=== PATIENT | female | born 1990 | race Caucasian/White ===

== ENCOUNTER 2018-11-21 15:57 | Inpatient (IN) | payer OTHER, SELFPAY ==
[2018-11-21 16:30] VITALS: BMI 25.3
[2018-11-21] MEDS ORDERED: Acetaminophen 500 MG TAB PO PRN (17:51)
[2018-11-21] MEDS ORDERED: Promethazine HCl 25 MG/ML VIAL IM PRN (17:51)
[2018-11-21] MEDS ORDERED: Calcium Gluc 4.6 MEQ/10 ML (100 MG/ML) SLOW IVP PRN (17:51)
--- NOTE | 2018-11-21 17:59 | PDOC.LDHP ---
Labor and Delivery H&P HPI: 27 yo @ 29w3 sent from clinic for evaluation due to PLT sx and CL 1.48 cm on TVUS with funneling. Pt has been having ctx the past 2 days intermittently. Unable to perform FFN due to intercourse yesterday. Denies LOF/VB. Pt very anxious about circumstance. Current gestational age (weeks): 29 Due date: 02/03/19 Dating criteria: first trimester ultrasound Grav: 2 Para: 0 Current complications: none Abnormal US findings: No Current medications: pre-katarzyna vitamins Previous surgical history: dilation and curettage, other (ovarian cystectomy) Allergies/Adverse Reactions: Allergies Allergy/AdvReac Type Severity Reaction Status Date / Time Cephalosporins Allergy Mild Rash Verified 11/21/18 16:31 - Physical Exam Vital signs reviewed and normal: yes General: NAD Heart: RRR Lungs: nonlabored breathing Abdomen: gravid Extremeties: no edema FHT: category 1 (120s, mod ernesto, +accels, no decels) [place] contractions every: rare ctx, not consistent - Vaginal Exam cm dilated: 0 (per TVUS) - OB Labs Blood type: A RH: positive Antibody Screen: negative HIV: negative RPR: negative HEPSAg: negative 1 hour GCT: negative GBS: unknown Urine drug screen: positive (+ THC) Rubella: immune - Assessment 29 weeks IUP Shortened CL with funneling, previous ctx. \ H/O THC use - Plan Plan: observation in L&D, informed consent obtained, anesthesia consult for pain management -: UDS and UA ordered. s/p BMTZ in clinic, will complete her course . mag for neuroprotection for possible risk for labor within the week.
[2018-11-21] MEDS ORDERED: Magnesium Sulfate 20 GM/WATER 500 ML BAG IVPB SCH (18:00)
[2018-11-21] MEDS ORDERED: hydrOXYzine 25 MG TAB PO PRN (18:04)
[2018-11-21] MEDS: Magnesium Sulfate 20 gm/500 ml 20 GM/500 ML BAG IVPB SCH (18:29)
[2018-11-21] MEDS: Lactated Ringer's 1,000 ML IV SCH (18:29)
[2018-11-21 19:06] LABS: Bilirubin Negative (Negative); Blood, Urine Negative (Negative); Clarity CLEAR (Clear); Glucose, Urine (Dipstick) Negative (Negative); Leukocyte Negative (Negative); Nitrite Negative (Negative); Protein, Urine (Dipstick) Negative (Neg-Trace); Urobilinogen 0.2 mg/dL (0.2-1.0); pH, Urine 7.5 (5.0-9.0)
[2018-11-21 19:10] LABS: Specific Gravity, Urine 1.002 (1.002-1.036)
[2018-11-21 19:17] VITALS: BP 127/72
[2018-11-21 19:18] LABS: Amphetamine Not Detected (NotDetected); Barbiturates Screen Not Detected (NotDetected); Benzodiazepine Screen Not Detected (NotDetected); Cocaine Metabolite Screen Not Detected (NotDetected); Medtox Control Line Valid? VALID (VALID); Medtox Reader # READER 1; Methadone Not Detected (NotDetected); Methamphetamine Not Detected (NotDetected); Opiate Screen Not Detected (NotDetected); Oxycodone Screen Not Detected (NotDetected); Phencyclidine (PCP) Not Detected (NotDetected); THC/Cannabinoid Screen Not Detected (NotDetected); Tricyclic Screen Not Detected (NotDetected)
[2018-11-21 19:24] LABS: Bacteria/HPF None Seen HPF (None Seen); Hyaline Casts/LPF NONE SEEN LPF (0-3 Hyaline); RBC/HPF None Seen HPF (0-3); Squamous Epithelial 0-3 HPF (0-3); WBC/HPF None Seen HPF (0-3)
[2018-11-21 19:27] LABS: Hemoglobin 12.5 g/dL (12.0-16.0); Mean Corpuscular HGB CONC 34.7 g/dL (32.0-36.0); Mean Corpuscular Hemoglobin 32.4 pg (27.0-31.0); Mean Corpuscular Volume 93.4 fL (78.0-98.0); Mean Platelet Volume 7.9 fL (7.4-10.4); Platelet Count 179 thou/uL (130-400); RBC Distribution Width 11.6 % (11.5-14.5); Red Blood Cell (RBC) Count 3.87 mill/uL (4.20-5.40); White Blood Cell (WBC) Count 15.5 thou/uL (4.8-10.8)
[2018-11-21 21:10] VITALS: TEMP 98.5
[2018-11-22] MEDS: Magnesium Sulfate 20 gm/500 ml 20 GM/500 ML BAG IVPB SCH (02:46)
[2018-11-22] MEDS: Ondansetron PF 4 MG/2 ML Vial IVP PRN ×2 (02:47→14:19)
[2018-11-22] MEDS: Lactated Ringer's 1,000 ML IV SCH ×2 (07:00→08:06)
--- NOTE | 2018-11-22 08:34 | PDOC.LDPN ---
Labor & Delivery Progress Note - Subjective Subjective: comfortable (Pt reports rested well. No ctx, pressure or back pain. Good FM. ) - Objective Vital signs reviewed and normal: yes General: NAD Uterine fundus: non tender FHT: category 1 (120s, mod ernesto, +accels, no decels ) [place] contractions every: no ctx - Assessment (1) contractions Code(s): O47.9 - FALSE LABOR, UNSPECIFIED Current Visit: Yes Status: Acute (2) Antepartum cervical shortening Code(s): O26.879 - CERVICAL SHORTENING, UNSPECIFIED TRIMESTER Current Visit: Yes Status: Acute -: D/C mag this morning, now > 12 hr for neuroprotection and pt has not had ctx since admission. Plan to complete BMTZ course this PM and plan for d/c home. PTL precautions reviewed with pt.
[2018-11-22] MEDS ORDERED: metroNIDAZOLE 500 MG TAB PO SCH ×3 (12:30→21:00)
[2018-11-22] MEDS ORDERED: Ondansetron ODT 8 MG TAB SL PRN (13:18)
[2018-11-22] MEDS ORDERED: Fluconazole 100 MG TAB PO SCH (13:30)
[2018-11-22] MEDS ORDERED: Betamet Acet/Betamet Na Ph 30 MG/5 ML VIAL IM SCH (15:00)
--- NOTE | 2018-11-24 04:35 | DIS ---
DATE OF ADMISSION: 11/21/2018 DATE OF DISCHARGE: 11/22/2018 ADMISSION DIAGNOSES: 1. A 29-week 3-day intrauterine . 2. Shortened cervical length noted antepartum. 3. contractions. DISCHARGE DIAGNOSES: 1. A 29-week 3-day intrauterine . 2. Shortened cervical length noted antepartum. 3. contractions. DISCHARGE PHYSICIAN: Shandra Montaño DO BRIEF HOSPITAL COURSE: Ms. Crump is a 27-year-old, G2, P0, at 29 weeks and 3 days who presented to clinic with complaints of contractions. She had undergone a transvaginal ultrasound noting cervical funneling with 1.4 cm of intact cervix and fFN was unable to be obtained due to recent intercourse. The patient was then recommended to be admitted for observation for a betamethasone steroid course for lung maturity and magnesium for neuroprotection. She was found to not be actively livia during her admission, however, was thought that observation was necessary for these interventions as listed above due to possible increased risk for labor and delivery within the next week of her . The patient did undergo the betamethasone course and magnesium for neuroprotection. The fetus remained reactive throughout her stay and she did not have any additional contractions. The patient was then discharged home with labor precautions and followup appointment scheduled. ACTIVITY RESTRICTIONS: Recommended pelvic rest and decreased physical activity and increased hydration. FOLLOWUP: Follow up in 1-2 weeks in clinic. Job ID: [id number]
== END 2018-11-22 15:30 | disposition home health service (06) | DRG 832 ==
LOC: L&D 15:57
PROVIDERS: ADMIT Obstetrics & Gynecology; ATTEND Obstetrics & Gynecology
DX: O47.03 False labor before 37 completed weeks of gestation, third trimester (principal); O26.873 Cervical shortening, third trimester; Z3A.29 29 weeks gestation of pregnancy; Z88.1 Allergy status to other antibiotic agents
CPT/HCPCS: 36415; 80306; 81001; 83735; 85027; 86850; 86900; 86901; 87077; 87081; 99285; J0702; J2405; J2550; J3475

== ENCOUNTER 2019-02-01 06:00 | Inpatient (IN) | payer OTHER, SELFPAY ==
[2019-02-01] MEDS ORDERED: Misoprostol 200 MCG TAB PR PRN (08:57)
[2019-02-01] MEDS ORDERED: Promethazine HCl 25 MG/ML VIAL IM PRN (08:57)
[2019-02-01] MEDS ORDERED: Lidocaine 1% (PF) 30 ML VIAL SC PRN (08:57)
[2019-02-01] MEDS ORDERED: Carboprost 250 MCG/ML AMP IM PRN (08:57)
[2019-02-01] MEDS ORDERED: NS / Oxytocin 40 units/1000ml 1,000 ML IV PRN (08:57)
[2019-02-01] MEDS ORDERED: hydrALAZINE 20 MG/ML VIAL SLOW IVP PRN ×2 (08:57→20:32)
[2019-02-01] MEDS ORDERED: Methylergonovine 0.2 MG/ML VIAL IM PRN ×2 (08:57→20:32)
[2019-02-01] MEDS ORDERED: Butorphanol Tartrate 1 MG/ML VIAL SLOW IVP PRN (08:57)
[2019-02-01] MEDS ORDERED: Acetaminophen 500 MG TAB PO PRN (08:57)
[2019-02-01] MEDS ORDERED: Diphenoxylate HCl/Atropine Tablet PO PRN (08:57)
[2019-02-01] MEDS ORDERED: HYDROcodone/Acetaminophen 5/325 mg Tablet PO PRN (08:57)
[2019-02-01] MEDS ORDERED: Ondansetron PF 4 MG/2 ML Vial IVP PRN (08:57)
[2019-02-01] MEDS ORDERED: Penicillin G Potassium 5 MILL.UNITS in Sodium Chloride 0.9% 100 ML IVPB SCH (09:00)
--- NOTE | 2019-02-01 09:08 | PDOC.LDHP ---
Labor and Delivery H&P Chief complaint: scheduled induction HPI: 28 yo @ 39w5d by LMP c/w 9 week CRL who presents for EIOL. Antepartum course complicated by prior THC use, UDS has been negative; anxiety and GBS carrier. She was admitted at 29 weeks for shortened CL and given BMTZ and mag. Otherwise, benign antepartum course. Current gestational age (weeks): 39 Due date: 02/03/19 Dating criteria: last menstrual period Grav: 2 Para: 0 OB History Details: 1 SAB Current complications: none Abnormal US findings: No Past Medical History: Anxiety Current medications: pre- vitamins Previous surgical history: other (Left tib/fib; D&C, ovarian cystectomy) Allergies/Adverse Reactions: Allergies Allergy/AdvReac Type Severity Reaction Status Date / Time cephalothin Allergy Verified 02/01/19 10:07 Social history: drug use (prior THC, remainder of UDS negative) - Physical Exam Vital signs reviewed and normal: yes General: NAD Heart: RRR Lungs: nonlabored breathing Abdomen: gravid Extremeties: no edema (120s, mod ernesto, +accels, no decels) FHT: category 1 [place] contractions every: irregualr - Vaginal Exam cm dilated: 3 (per RN ) Effacement: 75% Station: -1 - OB Labs Blood type: A RH: positive Antibody Screen: negative HIV: negative RPR: negative HEPSAg: negative 1 hour GCT: negative GBS: positive Urine drug screen: positive (repeat negative) Rubella: immune Additional Labs: NIPT, msAFP and carrier screening negative - Assessment 39w5d IUP EIOL GBS+ - Plan Plan: admit to L&D, GBS antibiotic prophylaxis, informed consent obtained, anesthesia consult for pain management -: pitocin for IOL
[2019-02-01] MEDS ORDERED: Penicillin G Potassium 5 MILL.UNITS VIAL ONE (09:28)
[2019-02-01] MEDS ORDERED: NS w/ Oxytocin 10 units 500 ML ONE (09:28)
[2019-02-01] MEDS: Lactated Ringer's 1,000 ML IV SCH ×2 (09:30→22:14)
[2019-02-01] MEDS ORDERED: Ondansetron PF 4 MG/2 ML Vial ONE (09:39)
[2019-02-01] MEDS ORDERED: diphenhydrAMINE 50 MG/ML VIAL ONE (09:40)
[2019-02-01 10:12] LABS: Hemoglobin 12.4 g/dL (12.0-16.0); Mean Corpuscular HGB CONC 35.5 g/dL (32.0-36.0); Mean Corpuscular Volume 90.1 fL (78.0-98.0); Mean Platelet Volume 8.6 fL (7.4-10.4); Platelet Count 169 thou/uL (130-400); RBC Distribution Width 12.1 % (11.5-14.5); Red Blood Cell (RBC) Count 3.89 mill/uL (4.20-5.40); White Blood Cell (WBC) Count 9.4 thou/uL (4.8-10.8)
[2019-02-01 10:21] VITALS: BMI 26.9
[2019-02-01 10:56] LABS: HBSAg Index 0.35 S/CO (0-0.99); HIV (1/2) Antibody/Antigen Non-Reactive (NonReactive); HIV 1/2 INDEX 0.12 S/CO (<1.00); Hep B Surf Ag Non-Reactive S/CO (NonReactive)
[2019-02-01 10:57] LABS: Syphilis Antibody Nonreactive (Nonreactive); Syphilis Antibody Index 0.07 S/CO (<1.00 Non-Reactive)
[2019-02-01] MEDS ORDERED: Lidocaine 2% MPF 10 ML AMP (For Epidural Use) ONE (11:11)
[2019-02-01] MEDS: NS w/ Oxytocin 10 units 500 ML IV SCH (11:29)
[2019-02-01] MEDS ORDERED: diphenhydrAMINE 50 MG/ML VIAL IVP SCH (11:30)
[2019-02-01] MEDS ORDERED: Fentanyl 4 mcg/Bup 0.1% Cadd 100 ML ONE (12:29)
[2019-02-01] MEDS ORDERED: hydrOXYzine 25 MG TAB PO PRN (12:29)
--- NOTE | 2019-02-01 12:31 | PDOC.LDPN ---
Labor & Delivery Progress Note - Subjective Subjective: painful contractions - Objective Vital signs reviewed and normal: yes General: NAD Uterine fundus: non tender Dilation: 4 Effacement: 90% Station: 0 FHT: category 1 (120s, mod ernesto, +accels, no decels ) [place] contractions every: q4-5 min AROM: clear fluid - Assessment (1) 39 weeks gestation of Code(s): Z3A.39 - 39 WEEKS GESTATION OF Current Visit: Yes Status : Acute (2) Group B streptococcal carriage complicating Code(s): O99.820 - STREPTOCOCCUS B CARRIER STATE COMPLICATING Current Visit: Yes Status: Acute Plan: continue plan of care, pitocin for augmentation
[2019-02-01] MEDS ORDERED: Lidocaine 1.5%/Epinephrine 1:200,000 5 ML AMPUL IJ ONE (12:45)
[2019-02-01] MEDS: Penicillin G 2.5 MILL.units 2.5 MILL.UNITS in Premix Bag 1 BAG IVPB SCH ×3 (13:30→22:14)
[2019-02-01 14:25] LABS: Amphetamine Not Detected (NotDetected); Cocaine Metabolite Screen Not Detected (NotDetected); Medtox Reader # READER 4; Methamphetamine Not Detected (NotDetected); Opiate Screen Not Detected (NotDetected); Phencyclidine (PCP) Not Detected (NotDetected); THC/Cannabinoid Screen Not Detected (NotDetected)
[2019-02-01 14:26] LABS: Barbiturates Screen Not Detected (NotDetected); Benzodiazepine Screen Not Detected (NotDetected); Medtox Control Line Valid? VALID (VALID); Methadone Not Detected (NotDetected); Oxycodone Screen Not Detected (NotDetected); Tricyclic Screen Not Detected (NotDetected)
[2019-02-01 20:11] LABS: pH (Cord, venous) 7.3 (7.32-7.43)
--- NOTE | 2019-02-01 20:12 | PDOC.OPDEL ---
OB Operative/Delivery Note Delivery Dr/Surgeon: Shandra Montaño DO Pre-Delivery Diagnosis: elective induction Procedure/Post Delivery Dx: spontaneous vaginal delivery Weeks gestation: 39 Anesthesia: epidural - Findings A Sex: male - 1 min: 6 - 5 min: 8 - Additional Findings/Plan Placenta delivered: spontaneous Repaired Obstetrical Laceration: other (small bilateral labial lacerations) Estimated blood loss: EBL 400 cc Compilations/Other Findings: Cepahlic presentation, HEIKE position NICU called to room Cord gases done Cytotec 800 mcg HI placed due to atony which resolved. Post delivery plan: routine recovery
[2019-02-01] MEDS ORDERED: Preparation H Ointment 28 GM TUBE PR PRN (20:32)
[2019-02-01] MEDS ORDERED: Bisacodyl 10 MG SUPP PR PRN (20:32)
[2019-02-01] MEDS ORDERED: Zolpidem Tartrate 5 MG TAB PO PRN (20:32)
[2019-02-01] MEDS ORDERED: Milk Of Magnesia 30 ML UDCUP PO PRN (20:32)
[2019-02-01] MEDS ORDERED: Benzocaine-Menthol 82.5 ML CAN TOP PRN (20:32)
[2019-02-01] MEDS: Ibuprofen 800 MG TAB PO SCH (20:41)
[2019-02-01] MEDS: NS / Oxytocin 40 units/1000ml 1,000 ML IV SCH ×2 (20:42→20:43)
[2019-02-01] MEDS: Docusate Calcium (SURFAK) 240 MG CAP PO SCH (22:14)
[2019-02-02] MEDS: HYDROcodone/Acetaminophen 5/325 mg Tablet PO PRN ×4 (00:34→22:41)
[2019-02-02] MEDS: Lactated Ringer's 1,000 ML IV SCH ×3 (02:41→14:54)
[2019-02-02] MEDS: Ibuprofen 800 MG TAB PO SCH ×3 (04:52→21:30)
[2019-02-02 06:49] LABS: #Eosinphils 0.1 thou/uL (0.0-0.7); #Lymphocytes 1.7 thou/uL (1.20-3.40); #Monocytes 0.9 thou/uL (0.11-0.59); #Neutrophils 10.1 thou/uL (1.40-6.50); %Basophils 0.4 % (0.0-1.0); %Eosinophils 0.8 % (0.0-10.0); %Lymphocytes 13.1 % (21.0-51.0); %Monocytes 6.6 % (0.0-10.0); %Neutrophils 79.1 % (42.0-75.0); Hemoglobin 10.8 g/dL (12.0-16.0); Mean Corpuscular HGB CONC 34.5 g/dL (32.0-36.0); Mean Corpuscular Hemoglobin 31.8 pg (27.0-31.0); Mean Corpuscular Volume 92.1 fL (78.0-98.0); Mean Platelet Volume 8.3 fL (7.4-10.4); Platelet Count 128 thou/uL (130-400); Red Blood Cell (RBC) Count 3.39 mill/uL (4.20-5.40); White Blood Cell (WBC) Count 12.8 thou/uL (4.8-10.8)
[2019-02-02] MEDS: NS w/ Oxytocin 10 units 500 ML IV SCH (07:34)
[2019-02-02] MEDS: Ferrous Sulfate 325 MG TAB PO SCH ×2 (07:34→14:54)
--- NOTE | 2019-02-02 08:12 | PRG ---
DATE OF SERVICE: 02/02/2019 SUBJECTIVE: The patient is day 1, status post a term spontaneous vaginal delivery. She is reporting this morning that she is tolerating p.o., voiding on her own, having decreased lochia and good pain control. OBJECTIVE: VITAL SIGNS: Blood pressure is 112/59, temperature 98.5, pulse of 99, and respiratory rate of 18. GENERAL: She appears to be in no acute distress. She is alert and oriented, cooperative and pleasant to interact with. HEENT: Head is normocephalic, atraumatic. ABDOMEN: Fundus is firm. EXTREMITIES: Nontender. Nonedematous. ASSESSMENT AND PLAN: The patient is a G1, now P1 female, day 1, status post a term spontaneous vaginal delivery. We will continue in-house care. Anticipate discharge tomorrow. Job ID: [id number]
[2019-02-02] MEDS: Ondansetron ODT 4 MG TAB PO PRN ×2 (09:19→22:44)
[2019-02-02] MEDS: Docusate Calcium (SURFAK) 240 MG CAP PO SCH ×2 (09:19→21:30)
[2019-02-02] MEDS: Prenatal Vitamin 1 TAB PO SCH (09:19)
[2019-02-03] MEDS: Lactated Ringer's 1,000 ML IV SCH ×3 (01:21→17:34)
[2019-02-03] MEDS: Ibuprofen 800 MG TAB PO SCH ×2 (05:33→13:57)
--- NOTE | 2019-02-03 07:20 | PDOC.PP ---
Post Progress Note Post Day #: 2 PO intake tolerated: yes Flatus: yes Ambulation: yes Vital Signs (12 hours) Temp Pulse Resp BP Pulse Ox 02/02/19 21:15 97.7 F 78 18 111/55 L 98 Weight Weight 167 lb - Physical Examination General: NAD Respiratory: clear to auscultation bilaterally Abdominal: + bowel sounds, lochia Extremities: negative homans (B) Neurological: no gross focal deficits Psychiatric: A&Ox3, normal affect Result Diagrams: 02/02/19 06:23 Additional Labs: Post Labs Blood Type A POSITIVE 02/01/19 10:35 Hep Bs Antigen Non-Reactive S/CO (NonReactive) 02/01/19 10:04 - Assessment/Plan doing well desires dc home.
[2019-02-03] MEDS: Ferrous Sulfate 325 MG TAB PO SCH ×2 (07:37→17:34)
[2019-02-03] MEDS: NS w/ Oxytocin 10 units 500 ML IV SCH (07:37)
[2019-02-03 08:56] VITALS: BP 107/64; TEMP 98.7
[2019-02-03] MEDS: Docusate Calcium (SURFAK) 240 MG CAP PO SCH (09:29)
[2019-02-03] MEDS: Prenatal Vitamin 1 TAB PO SCH (09:29)
[2019-02-03] MEDS: HYDROcodone/Acetaminophen 5/325 mg Tablet PO PRN (10:39)
== END 2019-02-03 18:30 | disposition home or self-care (01) | DRG 807 ==
LOC: L&D 08:49 → MERGE 08:49 → 3SW 23:26
PROVIDERS: ADMIT Obstetrics & Gynecology; ATTEND Obstetrics & Gynecology
PROC: 10907ZC Drainage of Amniotic Fluid, Therapeutic from Products of Conception, Via Natural or Artificial Opening (ICD-10-PCS; principal; 2019-02-01)
PROC: 10E0XZZ Delivery of Products of Conception, External Approach (ICD-10-PCS; 2019-02-01)
PROC: 3E033VJ Introduction of Other Hormone into Peripheral Vein, Percutaneous Approach (ICD-10-PCS; 2019-02-01)
PROC: 0HQ9XZZ Repair Perineum Skin, External Approach (ICD-10-PCS; 2019-02-01)
DX: O99.824 Streptococcus B carrier state complicating childbirth (principal); Z37.0 Single live birth; O70.0 First degree perineal laceration during delivery; Z3A.39 39 weeks gestation of pregnancy
CPT/HCPCS: 36415; 51702; 80306; 82805; 85025; 85027; 86780; 86850; 86900; 86901; 87340; 87389; J1200; J2001; J2405; J2540; J2590; J3490; Q0162